=== PATIENT | female | born 2000 | race Asian ===

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

== ENCOUNTER 2022-02-10 13:40 | Emergency (ER) | payer OTHER ==
[~2022-02-10] VITALS: Ht 170.2 cm; Wt 70.3 kg
[2022-02-10 13:45] VITALS: TEMP 98.8
[2022-02-10] MEDS ORDERED: GABA300C2 PO (13:48)
[2022-02-10 14:54] VITALS: BP 125/74
== END 2022-02-10 14:55 | disposition home or self-care (01) ==
LOC: ED 13:40
DX: J02.9 Acute pharyngitis, unspecified (principal)
CPT/HCPCS: 81002; 87651; 99283

== ENCOUNTER 2022-02-12 19:35 | Emergency (ER) | payer OTHER ==
[~2022-02-12] VITALS: Ht 170.2 cm; Wt 70.3 kg
[~2022-02-12 19:35] MED LIST: GABA300C2 PO
[2022-02-12 21:20] VITALS: BP 109/79; TEMP 98.6
== END 2022-02-12 21:20 | disposition home or self-care (01) ==
LOC: ED 19:35
DX: B34.9 Viral infection, unspecified (principal); U07.1 COVID-19
CPT/HCPCS: 87502; 87635; 87651; 99283; U0003

== ENCOUNTER 2022-02-15 20:32 | Emergency (ER) | payer OTHER ==
[~2022-02-15] VITALS: Ht 170.2 cm; Wt 70.3 kg
[2022-02-15 21:00] VITALS: BP 116/80; TEMP 99.3
== END 2022-02-15 23:00 | disposition left against medical advice (07) ==
LOC: ED 20:32
DX: Z53.21 Procedure and treatment not carried out due to patient leaving prior to being seen by health care provider (principal); U07.1 COVID-19; R11.2 Nausea with vomiting, unspecified; R19.7 Diarrhea, unspecified; R10.84 Generalized abdominal pain

== ENCOUNTER 2022-02-18 22:25 | Emergency (ER) | payer OTHER ==
[~2022-02-18] VITALS: Ht 170.2 cm; Wt 70.3 kg
[2022-02-18 22:30] VITALS: TEMP 98.7
[2022-02-18 23:05] VITALS: BP 113/80
== END 2022-02-18 23:05 | disposition home or self-care (01) ==
LOC: ED 22:25
DX: Z86.16 Personal history of COVID-19 (principal)
CPT/HCPCS: 99282